=== PATIENT | female | born 1950 | race Caucasian/White ===

== ENCOUNTER 2016-12-04 13:08 | Emergency (ER) | payer MEDICARE, OTHER ==
[~2016-12-04] VITALS: Ht 157.5 cm; Wt 67.8 kg
[~2016-12-04 13:08] MED LIST: CAPT25TA71 PO; [UNRECOGNIZED DRUG - CODE] PO
[2016-12-04 13:10] VITALS: Ht 157.5 cm; Wt 67.8 kg
[2016-12-04] MEDS ORDERED: SOD CHLORIDE 0.9% 1,000 ML IV STA (13:26)
[2016-12-04 13:45] LABS: ADD SCAN DIFF NO
[2016-12-04 13:49] LABS: BASOPHILS % 0.5 % (0.0-2.0); EOSINOPHILS # 0.3 10^3/ul (0.0-0.5); EOSINOPHILS % 2.8 % (0.0-7.0); HEMATOCRIT 38.5 % (37.0-47.0); HEMOGLOBIN 13.2 g/dl (12.0-16.0); LYMPHOCYTES % 34.5 % (15.0-51.0); MEAN CORPUSCULAR HEMOGLOBIN 30.8 pg (29.0-33.0); MEAN CORPUSCULAR HGB CONC 34.3 g/dl (32.0-37.0); MEAN PLATELET VOLUME 8.9 fl (7.4-10.4); MONOCYTE # 0.5 10^3/ul (0.3-0.9); MONOCYTES % 5.4 % (0.0-11.0); NEUTROPHILS % 56.6 % (39.0-77.0); PLATELET COUNT 211 10^3/UL (140-415); RED BLOOD COUNT 4.28 10^6/ul (4.20-5.40); RED CELL DISTRIBUTION WIDTH 12.6 % (11.5-14.5); WHITE BLOOD COUNT 8.8 10^3/ul (4.8-10.8)
[2016-12-04 13:58] LABS: CHLORIDE 107 mmol/L (97-110)
[2016-12-04 13:59] LABS: POTASSIUM 3.6 mmol/L (3.5-5.1); SODIUM 148 mmol/L (135-144)
[2016-12-04 14:01] LABS: ANION GAP 18 (8-16); CARBON DIOXIDE 27 mmol/L (21-31)
[2016-12-04 14:02] LABS: ALANINE AMINOTRANSFERASE 35 IU/L (13-69); ALBUMIN/GLOBULIN RATIO 1.21; ALKALINE PHOSPHATASE 95 IU/L (42-121); ASPARTATE AMINO TRANSFERASE 27 IU/L (15-46); BILIRUBIN,INDIRECT 0.4 mg/dl (0-1.1); BILIRUBIN,TOTAL 0.4 mg/dl (0.2-1.3); BLOOD UREA NITROGEN 18 mg/dl (7-20); CALCIUM 8.9 mg/dl (8.4-10.2); GLUCOSE 92 mg/dl (70-220); TOTAL PROTEIN 7.3 g/dl (6.1-8.1)
[2016-12-04 14:04] LABS: INR 0.97; PROTIME 12.9 Sec (12.2-14.2)
[2016-12-04 14:05] LABS: PARTIAL THROMBOPLASTIN TIME 25.8 Sec (25.0-35.0)
[2016-12-04 14:14] LABS: TROPONIN-I < 0.012 ng/ml (0.00-0.12)
[2016-12-04 14:42] LABS: T3 UPTAKE 32.9 % (23.5-40.5)
--- NOTE | 2016-12-04 14:53 | RADRPT ---
PROCEDURE: XR Chest. CLINICAL INDICATION: Chest pain, abdominal pain TECHNIQUE: AP view of the chest was performed. COMPARISON: None FINDINGS: The cardiomediastinal silhouette is within normal limits. The lungs are clear. No signs of pleural f luid or pneumothorax are seen. The osseous structures and soft tissues are unremarkable. IMPRESSION: No evidence for active cardiopulmonary disease. RPTAT: QQ .Franchesca Gibbs MD, MD Date Time Electronically viewed and signed by .Franchesca Gibbs MD, on 12/04/2016 14:53 .F/
[2016-12-04 18:01] LABS: ADD UMIC YES; URINE BILIRUBIN (Dip) NEGATIVE (NEGATIVE); URINE BLOOD (Dip) NEGATIVE (NEGATIVE); URINE COLOR LT. YELLOW (YELLOW); URINE GLUCOSE (Dip) NEGATIVE (NEGATIVE); URINE KETONES (Dip) 15 (NEGATIVE); URINE LEUKOCYTE ESTERASE (Dip) TRACE (NEGATIVE); URINE NITRITE (Dip) NEGATIVE (NEGATIVE); URINE TOTAL PROTEIN (Dip) NEGATIVE (NEGATIVE); URINE UROBILINOGEN (Dip) 0.2 E.U./dL (0.1-1.0)
[2016-12-04 18:31] LABS: URINE RBCS 0-2 /HPF (0)
[2016-12-04] MEDS ORDERED: CEPH500C PO (18:38)
[2016-12-04] MEDS ORDERED: MECL-77 PO (18:40)
--- NOTE | 2016-12-04 18:48 | ERD ---
ER Documentation Chief Complaint Date/Time DATE: 12/04/16 TIME: 18:42 Chief Complaint dizziness x 1 1/2 mos HPI This 66-year-old female presents with feeling tired and occasionally lightheaded for a month and a half. She denies any headache or specific neurological symptoms. She has no focal weakness. Denies any fevers chills although she occasionally does sweat. She has no chest pain or shortness of breath. ROS All systems reviewed and are negative except as per history of present illness. Medications Home Meds Active Scripts Meclizine Hcl* (Meclizine Hcl*) 25 Mg Tablet, 12.5 MG PO Q8H Y for DIZZINESS, # 20 TAB Prov:TISHA GRANT DO 12/04/16 Cephalexin* (Cephalexin*) 500 Mg Capsule, 500 MG PO Q8, #9 CAP Prov:TISHA GRANT DO 12/04/16 Discontinued Reported Medications Gymnema Avery (GYMNEMA SYLVESTRIS LEAF) 1 Gm Powder, PO BID 10/16/13 Captopril* (Capoten*) 25 Mg Tab, 25 MG PO DAILY 10/16/13 Allergies Allergies: Coded Allergies: No Known Allergy (Unverified , 10/16/13) PMhx/Soc History of Surgery: No Anesthesia Reaction: No Hx Neurological Disorder: No Hx Respiratory Disorders: No Hx Cardiac Disorders: No Hx Psychiatric Problems: No Hx Miscellaneous Medical Probl: No Hx Alcohol Use: No Hx Substance Use: No Hx Tobacco Use: No Smoking Status: Never smoker Physical Exam Vitals Vital Signs Date Time Temp Pulse Resp B/P Pulse Ox O2 Delivery O2 Flow Rate FiO2 12/04/16 13:10 98.1 62 18 120/57 99 Physical Exam Const: [] No distress Head: Atraumatic Eyes: Normal Conjunctiva, EOMI, PERRLA ENT: Normal External Ears, Nose and Mouth. Neck: Full range of motion..~ No meningismus. Resp: Clear to auscultation bilaterally Cardio: Regular rate and rhythm, no murmurs Abd: Soft, non tender, non distended. Normal bowel sounds Skin: No petechiae or rashes Back: No midline or flank tenderness Ext: No cyanosis, or edema Neur: Awake and alert and oriented 3, cranial nerves II through XII intact, no cerebellar deficits, normal gait Psych: Normal Mood and Affect Result Diagram: 12/04/16 1330 12/04/16 1330 Results 24 hrs Laboratory Tests Test 12/04/16 13:30 12/04/16 17:20 Activated Partial Thromboplast Time 25.8Sec Alanine Aminotransferase (ALT/SGPT) 35IU/L Albumin 4.0g/dl Albumin/Globulin Ratio 1.21 Alkaline Phosphatase 95IU/L Anion Gap 18 Aspartate Amino Transf (AST/SGOT) 27IU/L Basophils # 0.010^3/ul Basophils % 0.5% Blood Urea Nitrogen 18mg/dl Calcium Level 8.9mg/dl Carbon Dioxide Level 27mmol/L Chloride Level 107mmol/L Creatinine 0.70mg/dl Direct Bilirubin 0.00mg/dl Eosinophils # 0.310^3/ul Eosinophils % 2.8% Free Thyroxine Index 3.36ug/ml Globulin 3.30g/dl Glucose Level 92mg/dl Hematocrit 38.5% Hemoglobin 13.2g/dl INR International Normalized Ratio 0.97 Indirect Bilirubin 0.4mg/dl Lactic Acid Level 0.8mmol/L Lipase 58U/L Lymphocytes # 3.010^3/ul Lymphocytes % 34.5% Mean Corpuscular Hemoglobin 30.8pg Mean Corpuscular Hemoglobin Concent 34.3g/dl Mean Corpuscular Volume 90.0fl Mean Platelet Volume 8.9fl Monocytes # 0.510^3/ul Monocytes % 5.4% Neutrophils # 5.010^3/ul Neutrophils % 56.6% Nucleated Red Blood Cells # 0.010^3/ul Nucleated Red Blood Cells % 0.0/100WBC Platelet Count 69693^3/UL Potassium Level 3.6mmol/L Prothrombin Time 12.9Sec Prothrombin Time Ratio 1.0 Red Blood Count 4.2810^6/ul Red Cell Distribution Width 12.6% Sodium Level 148mmol/L Thyroxine (T4) 10.2ug/dl Total Bilirubin 0.4mg/dl Total Protein 7.3g/dl Triiodothyronine (T3) Uptake 32.9% Troponin I < 0.012ng/ml White Blood Count 8.810^3/ul Urine Bilirubin NEGATIVE Urine Clarity CLEAR Urine Color LT. YELLOW Urine Glucose NEGATIVE% Urine Hemoglobin NEGATIVE Urine Ketones 15 Urine Leukocyte Esterase TRACE Urine Microscopic RBC 0-2/HPF Urine Microscopic WBC 0-2/HPF Urine Nitrite NEGATIVE Urine Specific [place] 1.020 Urine Total Protein NEGATIVE Urine Urobilinogen 0.2 E.U./dL Urine pH 6.0 Current Medications Medications (Trade) Dose Ordered Sig/Tamra Route PRN Reason Start Time Stop Time Status Last Admin Dose Admin Sodium Chloride (NS) 1,000 ml @ 1,000 mls/hr Q1H STAT IV 12/04/16 13:26 12/04/16 14:25 DC 12/04/16 13:47 Procedures/MDM Patient is visually asymptomatic except for subjective generalized weakness and occasional dizziness as though she feels lightheaded but occasionally as though there is a little spinning for a month and a half. She also had occasional sweats. There are no signs of acute infection. She has a positive leukocyte esterase and trace amounts in her urinalysis. I will discharge with Keflex. She doesn't hydrated normal saline. He is currently asymptomatic and feeling well in the emergency room. She does have mild bradycardia with normal blood pressure. Going to discharge her with a few of 12.5 mg and ever pills as well as 3 days of Keflex. Could have her follow up with her primary care doctor. All of her labs for her. Told if she has any neurological symptoms or chest pain shortness of breath she should really return to the ER. 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 No other arrhythmias Chest x-ray interpretation: No acute process, no witnessed him, no infiltrate, no pneumothorax, no fractures Departure Diagnosis: Primary Impression: Dizziness Additional Impression: Generalized weakness Condition: Stable Patient Instructions: Dizziness, Unk Cause Additional Instructions: Call your primary care doctor TOMORROW for an appointment during the next 2-3 days.See the doctor sooner or return here if your condition worsens before your appointment time. TISHA GRANT DO Dec 04, 2016 18:48
[2016-12-04 18:55] VITALS: BP 120/85; PULSE 61; RESP 16; TEMP 98.8
== END 2016-12-04 18:57 | disposition home or self-care (01) ==
LOC: E/R 13:08
DX: R42 Dizziness and giddiness (principal); R53.1 Weakness; R07.9 Chest pain, unspecified
CPT/HCPCS: 71010; 80053; 81001; 81003; 83605; 83690; 84436; 84479; 84484; 85025; 85610; 85730; 99285; J7030

== ENCOUNTER 2017-07-02 09:36 | Observation (INO) | payer MEDICARE, OTHER ==
[~2017-07-02] VITALS: Ht 157.5 cm; Wt 77.9 kg
[~2017-07-02 09:36] MED LIST changes: -CAPT25TA71 PO; +CEPH500C PO; +MECL-77 PO; -[UNRECOGNIZED DRUG - CODE] PO
--- NOTE | 2017-07-02 10:08 | ERA ---
ER Documentation Chief Complaint Date/Time DATE: 07/02/17 TIME: 10:04 Chief Complaint sob x 6 weeks, cough x 5 days HPI This is a very pleasant 67-year-old female history of diabetes, using a sign language interpreter. The patient describes at least 6 weeks of shortness of breath. She also describes approximately 1 week of left-sided chest pain and pressure that is intermittent worsening today. She denies any mid back pain. Shortness of breath is constant and no different when laying flat or exerting herself. No fevers or chills or cough. ROS All systems reviewed and are negative except as per history of present illness. Medications Home Meds Discontinued Scripts Meclizine Hcl* (Meclizine Hcl*) 25 Mg Tablet, 12.5 MG PO Q8H Y for DIZZINESS, # 20 TAB Prov:TISHA GRANT DO 12/04/16 Cephalexin* (Cephalexin*) 500 Mg Capsule, 500 MG PO Q8, #9 CAP Prov:TISHA GRANT DO 12/04/16 Allergies Allergies: Coded Allergies: No Known Allergy (Unverified , 10/16/13) PMhx/Soc History of Surgery: No Anesthesia Reaction: No Hx Neurological Disorder: No Hx Respiratory Disorders: No Hx Cardiac Disorders: No Hx Psychiatric Problems: No Hx Miscellaneous Medical Probl: No Hx Alcohol Use: No Hx Substance Use: No Hx Tobacco Use: No FmHx Family History: No diabetes Physical Exam Vitals Vital Signs Date Time Temp Pulse Resp B/P Pulse Ox O2 Delivery O2 Flow Rate FiO2 07/02/17 10:38 56 24 117/69 97 Room Air 07/02/17 10:29 Nasal Cannula 2 07/02/17 09:40 97.5 66 18 113/67 99 Physical Exam General: Well developed, well nourished, no acute distress Head: Normocephalic, atraumatic. Eyes: Pupils equally reactive, EOM intact ENT: Moist mucous membranes Neck: Supple, no lymphadenopathy Respiratory: Lungs clear bilaterally, no distress Cardiovascular: RRR, no murmurs, rubs, or gallops Abdominal: Soft, non-tender, non-distended, no peritoneal signs : Deferred MSK: Bilateral lower extremity 1+ pitting edema, no unilateral swelling, 5/5 strength Neurologic: Alert and oriented, moving all extremities, normal speech, no focal weakness, no cerebellar signs Skin: No rash Psych: Normal mood Result Diagram: 07/02/17 1008 07/02/17 1008 Results 24 hrs Laboratory Tests Test 07/02/17 10:08 White Blood Count 6.210^3/ul Red Blood Count 4.5010^6/ul Hemoglobin 13.6g/dl Hematocrit 40.5% Mean Corpuscular Volume 90.0fl Mean Corpuscular Hemoglobin 30.2pg Mean Corpuscular Hemoglobin Concent 33.6g/dl Red Cell Distribution Width 12.4% Platelet Count 62447^3/UL Mean Platelet Volume 9.0fl Neutrophils % 43.9% Lymphocytes % 44.1% Monocytes % 7.6% Eosinophils % 3.7% Basophils % 0.5% Nucleated Red Blood Cells % 0.0/100WBC Neutrophils # 2.710^3/ul Lymphocytes # 2.710^3/ul Monocytes # 0.510^3/ul Eosinophils # 0.210^3/ul Basophils # 0.010^3/ul Nucleated Red Blood Cells # 0.010^3/ul Sodium Level 142mmol/L Potassium Level 4.1mmol/L Chloride Level 107mmol/L Carbon Dioxide Level 26mmol/L Anion Gap 13 Blood Urea Nitrogen 14mg/dl Creatinine 0.69mg/dl Glucose Level 121mg/dl Calcium Level 8.7mg/dl Total Bilirubin 0.4mg/dl Direct Bilirubin 0.00mg/dl Indirect Bilirubin 0.4mg/dl Aspartate Amino Transf (AST/SGOT) 40IU/L Alanine Aminotransferase (ALT/SGPT) 70IU/L Alkaline Phosphatase 108IU/L Troponin I < 0.012ng/ml B-Type Natriuretic Peptide 49PG/ML Total Protein 7.7g/dl Albumin 4.4g/dl Globulin 3.30g/dl Albumin/Globulin Ratio 1.33 Current Medications Medications (Trade) Dose Ordered Sig/Tamra Route PRN Reason Start Time Stop Time Status Last Admin Dose Admin Aspirin (Aspirin) 324 mg ONCE ONCE PO 07/02/17 12:00 07/02/17 12:01 Ondansetron HCl (Zofran Inj) 4 mg ER BRIDGE PRN IV NAUSEA AND/OR VOMITING 07/02/17 12:00 07/03/17 11:59 Acetaminophen (Tylenol Tab) 650 mg ER BRIDGE PRN PO MILD PAIN/FEVER 07/02/17 12:00 10/8/17 11:59 Procedures/MDM EKG, MONITORS, & DIAGNOSTIC IMAGING: Chest x-ray: I reviewed and interpreted a 1 view of the chest Mediastinum: No enlargement Cardiac silhouette: No cardiomegaly Airspace: Clear lung saenz bilaterally without evidence of pneumothorax Bones: No evidence of fracture EKG: I reviewed and interpreted a 12-lead EKG. Rhythm: Normal sinus rhythm Ectopy: None Intervals: No abnormalities ST segments: No elevations or depressions T waves: No contiguous inversions LAB INTERPRETATION: Negative troponin, normal BNP MEDICAL DECISION MAKING: The patient presents to the emergency room with 6 weeks of shortness of breath. Her chest pain has been going on for approximately 1 week. It does not appear the patient has had cardiac workup in the past. This is somewhat concerning for possible CHF or cardiac etiology. The patient does not have unilateral swelling, no pleuritic pain, no significant hypoxia or tachycardia to suggest pulmonary embolism. No signs or symptoms concerning for pneumonia. ER COURSE: The patient's laboratory testing and diagnostic imaging is unrevealing. At this time given the persistence of her symptoms as well as the new onset of chest pain I recommend inpatient hospitalization to rule out ACS, echocardiogram to rule out mild CHF. The patient was given aspirin here in the emergency room. At this time no indication for CTPA given very low clinical concern for pulmonary embolism. If symptoms persist or workup shows evidence of right heart strain then consideration for PE workup would be reasonable on an inpatient basis. I kept the patient and/or family informed of laboratory and diagnostic imaging results throughout the emergency room course. DISPOSITION PLAN: Telemetry admission CONSULTATION: Accepting care team and consultations: I discussed the current laboratory data, diagnostic imaging and emergency care provided. Admitting team: Dr. Bee Admitting team indication: Insurance directed Departure Diagnosis: Primary Impression: Shortness of breath Additional Impression: Chest pain Qualified Code: R07.9 - Chest pain, unspecified type Condition: EMELINA Guzman MD Jul 02, 2017 10:08
[2017-07-02 10:32] LABS: BASOPHILS % 0.5 % (0.0-2.0); EOSINOPHILS # 0.2 10^3/ul (0.0-0.5); EOSINOPHILS % 3.7 % (0.0-7.0); HEMATOCRIT 40.5 % (37.0-47.0); HEMOGLOBIN 13.6 g/dl (12.0-16.0); LYMPHOCYTES # 2.7 10^3/ul (0.8-2.9); LYMPHOCYTES % 44.1 % (15.0-51.0); MEAN CORPUSCULAR HEMOGLOBIN 30.2 pg (29.0-33.0); MEAN CORPUSCULAR HGB CONC 33.6 g/dl (32.0-37.0); MONOCYTE # 0.5 10^3/ul (0.3-0.9); MONOCYTES % 7.6 % (0.0-11.0); NEUTROPHIL # 2.7 10^3/ul (1.6-7.5); NEUTROPHILS % 43.9 % (39.0-77.0); PLATELET COUNT 164 10^3/UL (140-415); RED CELL DISTRIBUTION WIDTH 12.4 % (11.5-14.5); WHITE BLOOD COUNT 6.2 10^3/ul (4.8-10.8)
--- NOTE | 2017-07-02 10:46 | RADRPT ---
PROCEDURE: XR Chest. CLINICAL INDICATION: Chest pain. TECHNIQUE: Single frontal view of the chest was obtained. COMPARISON: Chest x-ray 12/04/2016 01:51 p.m. FINDINGS: The soft tissues are normal. There are degenerative osteophytes in the thoracic spine. The heart, cardiomediastinal silhouette and hilar structures are normal. The pulmonary vasculature is normal. There are vascular calcifications in the aortic arch. There is a suboptimal inspiration. There is co mpressive atelectasis in the bases of the lungs. The costophrenic angles are normal. IMPRESSION: 1. Suboptimal inspiratory effort with compressive atelectasis in the bases of the lungs. 2. Atherosclerosis of the aortic arch. 3. Spondylosis of the thoracic spine. 4. Stable chest as compared to 12/04/2016. RPTAT:AAJJ Physician Bunny Date Time Electronically viewed and signed by Elian Carter Physician on 07/02/2017 10:46 ERIKA/
[2017-07-02 10:49] LABS: ALANINE AMINOTRANSFERASE 70 IU/L (13-69); ALBUMIN 4.4 g/dl (3.3-4.9); ALBUMIN/GLOBULIN RATIO 1.33; ALKALINE PHOSPHATASE 108 IU/L (42-121); ANION GAP 13 (8-16); ASPARTATE AMINO TRANSFERASE 40 IU/L (15-46); BILIRUBIN,INDIRECT 0.4 mg/dl (0-1.1); BILIRUBIN,TOTAL 0.4 mg/dl (0.2-1.3); BLOOD UREA NITROGEN 14 mg/dl (7-20); CALCIUM 8.7 mg/dl (8.4-10.2); CARBON DIOXIDE 26 mmol/L (21-31); CHLORIDE 107 mmol/L (97-110); CREATININE 0.69 mg/dl (0.44-1.00); GLUCOSE 121 mg/dl (70-220); POTASSIUM 4.1 mmol/L (3.5-5.1); SODIUM 142 mmol/L (135-144); TOTAL PROTEIN 7.7 g/dl (6.1-8.1)
[2017-07-02 11:00] LABS: B-TYPE NATRIURETIC PEPTIDE 49 PG/ML (0-125)
[2017-07-02 11:12] LABS: TROPONIN-I < 0.012 ng/ml (0.00-0.12)
[2017-07-02] MEDS ORDERED: ACETAMINOPHEN 325 MG TAB PO PRN ×2 (12:00→13:00)
[2017-07-02] MEDS ORDERED: ONDANSETRON 4 MG INJ IV PRN ×2 (12:00→13:00)
[2017-07-02] MEDS ORDERED: ASPIRIN 81 MG TAB PO ONE (12:00)
[2017-07-02] MEDS ORDERED: HYDROCODONE/APAP (5/325) TAB PO PRN (13:00)
[2017-07-02] MEDS ORDERED: NACL 0.9% 3 ML SYG IV SCH (13:00)
--- NOTE | 2017-07-02 13:02 | HP ---
Date/Time of Note Date/Time of Note DATE: 07/02/17 TIME: 12:56 Assessment/Plan VTE Prophylaxis VTE Prophylaxis Intervention: SCD's Lines/Catheters IV [facility] [place] Assessment/Plan Chief Complaint/Hosp Course 1. Chronic progressive dyspnea with an exertional component. Etiology unclear. Chest x-ray unimpressive. She denied any recent long travels. Low risk for any thromboembolic process. We will obtain a d-dimer. We will evaluate for any cardiac causes. Serial troponins will be obtained. A 2D echocardiogram will be obtained. Cardiology consult will be obtained. An ESR and CRP level will be obtained to evaluate for any underlying inflammatory process. 2. Vertigo. The patient has been taking meclizine at home. Brain CT scan will be obtained. A neurology consult will be obtained. Orthostatic vital signs will be obtained. 3. Type 2 diabetes mellitus. Not on any medications at home. The patient will be started on a carbohydrate controlled diet. A hemoglobin A1c will be obtained. If the patient's blood glucose levels continues to run high, the patient will be started on appropriate treatment. Plan: The patient will be admitted to inpatient telemetry floor. The patient will be started on a carbohydrate controlled diet. The patient will be started on DVT prophylaxis. The patient will remain a full code. Activities will be with assist. The rest of the patient's management will be based on the clinical course, inputs from consultants, and the results of diagnostic studies. Based on the patient's clinical presentation, she most probably requires at least one midnights stay for further management and evaluation of her clinical presentation. The case and management of this patient was fully discussed with Dr. Bee Problems: HPI/ROS Admit Date/Time Admit Date/Time Hx of Present Illness Reason for admission: Dyspnea [exertional] for past 6 weeks, cough. Consultants 1. Amando Ruiz MD, Cardiology. 2. Amanda Recinos MD, Neurology. This is a 67-year-old female with past medical history of type 2 diabetes mellitus currently not on any medications who came to the emergency room with multiple complaints. The patient verbalized that she has been feeling short of breath for the past 6 weeks. The patient verbalized that she becomes short of breath mainly with exertion and has been progressively getting worse. She denied any orthopnea or paroxysmal nocturnal dyspnea. She denied any chest pain per se. However, she was complaining of chest pain with frequent coughing. She was also complaining of a productive cough for the past 5 days. She denied any fevers. She was complaining of headache and neck pain. She denied any recent travels or sick contacts. The patient denied any nausea , vomiting, abdominal pain, diarrhea, constipation, dysuria, urinary urgency or frequency. The patient also complaining of significant dizziness and that the patient actually visited the ER at [facility] in November 2016 when she was discharged home on meclizine. The patient verbalized 1 episode of near syncope the previous day. She denied any loss of consciousness. She denied any seizures. In the emergency room, the patient's chest x-ray showed suboptimal inspiratory effort with compressive atelectasis in the lung bases. The patient's troponins were negative. The patient had no leukocytosis. The patient's 12-lead EKG showed sinus bradycardia. She was treated with a single dose of aspirin orally in the ER. ROS Constitutional: fatigue Eyes: no complaints ENT: no complaints Respiratory: cough, shortness of breath, sputum Cardiovascular: chest pain, lightheadedness Gastrointestinal: no complaints Genitourinary: no complaints Musculoskeletal: neck pain Skin: no complaints Neurologic: dizziness, headache Endocrine: no complaints Lymphatic: no complaints Psychological: no complaints Immunologic: no complaints PMH/Family/Social Past Medical History Medical History: diabetes Past Surgical History Past Surgical Hx: other (, tubal ligation) Family History Significant Family History: diabetes Social History Lives at home with her family. Alcohol Use: none Smoking Status: Former smoker Drug Use: none Exam/Review of Systems Vital Signs Vitals Vital Signs Date Time Temp Pulse Resp B/P Pulse Ox O2 Delivery O2 Flow Rate FiO2 07/02/17 12:33 52 17 114/72 100 Room Air 07/02/17 10:29 2 07/02/17 09:40 97.5 Exam Exam General: Adequately build 67 year-old female lying in bed in no apparent distress. HEENT: Normocephalic, atraumatic. Eyes: Anicteric sclerae, conjunctivae clear. ENT: Nasal septum midline, oral mucosa moist. Neck supple, no JVD noticed. Respiratory: Bilaterally clear breath sounds. No use of accessory muscles of respiration. No adventitious breath sounds. Cardiovascular: S1, S2 heard. No murmurs or gallops. Abdomen: Soft, nontender, and nondistended. Bowel sounds positive in all 4 quadrants. Genitourinary: Deferred. Extremities: No cyanosis, no clubbing. Trace B/L LE edema. Peripheral pulses palpable. Neurologic: Cranial nerves II through XII grossly intact. The patient is awake, alert, and oriented. Skin: Normal skin turgor. No skin rashes. Labs Result Diagram: 07/02/17 1008 07/02/17 1008 Procedures Procedures CXR IMPRESSION: 1. Suboptimal inspiratory effort with compressive atelectasis in the bases of the lungs. 2. Atherosclerosis of the aortic arch. 3. Spondylosis of the thoracic spine. 4. Stable chest as compared to 12/04/2016. 12-Lead EKG Sinus bradycardia. GINA SOMMER NP Jul 02, 2017 13:02
[2017-07-02 14:00] VITALS: PULSE 50; Ht 157.5 cm; Wt 77.9 kg
--- NOTE | 2017-07-02 14:22 | RADRPT ---
PROCEDURE: CT Brain without contrast. CLINICAL INDICATION: Syncope, near-syncope TECHNIQUE: Routine CT scan of the brain was performed on a high resolution multi detector scanner without intravenous contrast. One or more of the following dose reduction techniques were used: Auto mated exposure control; Adjustment of the mA and/or kV according to patient size; Use of iterative r econstruction technique. CTDI = 45 mGy. DLP = 630 mGy-cm. COMPARISON: No prior relevant examinations are available for comparison. FINDINGS: Hemorrhage: No evidence of intracranial hemorrhage. Acute ischemic changes: No evidence of acute ischemic changes. Mass effect: None. Parenchymal volume: Within normal limits for age. Ventricular system: Concordant with parenchymal volume. Chronic changes: Parenchymal attenuation is within normal limits. Atherosclerotic calcifications of the cavernous portions of both internal carotid arteries are present. Extracranial soft tissues: Unremarkable. Calvarium: No fractures. Paranasal sinuses: Visualized paranasal sinuses are clear. Mastoid air cells: Visualized mastoid air cells are clear. IMPRESSION: No acute intracranial abnormalities. Mild chronic-appearing microvascular ischemic changes of the supratentorial white matter. RPTAT: AADD .Donavon Chun MD, Date Time Electronically viewed and signed by .Donavon Chun MD, MD on 07/02/2017 14:22 .B/
--- NOTE | 2017-07-02 15:48 | CONS ---
Date/Time of Note Date/Time of Note DATE: 07/02/17 TIME: 15:42 Assessment/Plan Assessment/Plan Chief Complaint/Hosp Course 67 yo female with hx of Type II DM p/w multiple diffuse complaints dyspnea on exertion, cough, dizziness. Non focal neurologic exam. May obtain MRI Brain w/o contrast to r/o possible central causes of her sx carotid duplex is ordered to eval for carotid stenosis as possible cause of pre- syncope Check Orthostatic vitals may check FLP and HBA1c to optimize secondary risk factors for stroke continue medical work up as planned will follow Problems: Consultation Date/Type/Reason Admit Date/Time 07/02/17 Date of Consultation: Jul 02, 2017 Type of Consultation: Neurology Reason for Consultation evaluation for diffuse weakness and dizziness Referring Provider: GINA SOMMER NP Hx of Present Illness 67 year old female with history of Type II DM not currently on meds p/w multiple diffuse complaints. She reports difficulty breathing, cough, exertional dyspnea for several weeks along with sensation of loss of balance and dizziness, denies room spinning. She denies any headaches no speech issues, no facial droop or weakness in extremities, no falls, no urinary or bowel incontinence. She was previously evaluated in ER and given meclizine for c/o of dizziness. Eyes: no complaints ENT: no complaints Respiratory: cough, shortness of breath, sputum Cardiovascular: chest pain, lightheadedness Gastrointestinal: no complaints Genitourinary: no complaints Musculoskeletal: neck pain Skin: no complaints Neurologic: dizziness, headache Lymphatic: no complaints Psychological: no complaints Immunologic: no complaints Past Medical History Medical History: diabetes Past Surgical History Past Surgical Hx: other (, tubal ligation) Social History Alcohol Use: none Smoking Status: Former smoker Drug Use: none Exam/Review of Systems Vital Signs Vitals Vital Signs Date Time Temp Pulse Resp B/P Pulse Ox O2 Delivery O2 Flow Rate FiO2 07/02/17 14:00 50 07/02/17 12:33 17 114/72 100 Room Air 07/02/17 10:29 2 07/02/17 09:40 97.5 Exam Neurological: 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, DTR's symmetric, nl mental status, nl speech, nl strength Results Result Diagram: 07/02/17 1008 07/02/17 1008 Results 24 hrs Laboratory Tests Test 07/02/17 10:08 White Blood Count 6.2 # Red Blood Count 4.50 Hemoglobin 13.6 Hematocrit 40.5 Mean Corpuscular Volume 90.0 Mean Corpuscular Hemoglobin 30.2 Mean Corpuscular Hemoglobin Concent 33.6 Red Cell Distribution Width 12.4 Platelet Count 164 # Mean Platelet Volume 9.0 Neutrophils % 43.9 Lymphocytes % 44.1 Monocytes % 7.6 Eosinophils % 3.7 Basophils % 0.5 Nucleated Red Blood Cells % 0.0 Neutrophils # 2.7 Lymphocytes # 2.7 Monocytes # 0.5 Eosinophils # 0.2 Basophils # 0.0 Nucleated Red Blood Cells # 0.0 Sodium Level 142 Potassium Level 4.1 Chloride Level 107 Carbon Dioxide Level 26 Anion Gap 13 Blood Urea Nitrogen 14 Creatinine 0.69 Glucose Level 121 Calcium Level 8.7 Total Bilirubin 0.4 Direct Bilirubin 0.00 Indirect Bilirubin 0.4 Aspartate Amino Transf (AST/SGOT) 40 Alanine Aminotransferase (ALT/SGPT) 70 H Alkaline Phosphatase 108 Troponin I < 0.012 B-Type Natriuretic Peptide 49 Total Protein 7.7 Albumin 4.4 Globulin 3.30 H Albumin/Globulin Ratio 1.33 Medications Medications Current Medications Ondansetron HCl (Zofran Inj) 4 mg Q6H PRN IV NAUSEA AND/OR VOMITING; Start 07/02/17 at 13:00 Acetaminophen (Tylenol Tab) 650 mg Q6H PRN PO PAIN LEVEL 1-3 OR FEVER; Start 07/02/17 at 13:00 Acetaminophen/ Hydrocodone Bitart ([place] (5/325)) 1 tab Q6H PRN PO PAIN LEVEL 4 -6; Start 07/02/17 at 13:00 KAJAL FLETCHER MD Jul 02, 2017 15:48
[2017-07-02 15:50] VITALS: BP 119/64; RESP 18
[2017-07-02 16:08] VITALS: PULSE 52
[2017-07-02 16:08] LABS: INR 0.96; PROTIME 12.5 Sec (12.2-14.2)
[2017-07-02 16:12] LABS: CREATINE KINASE 158 IU/L (23-200)
[2017-07-02 16:14] LABS: C-REACTIVE PROTEIN 1.2 mg/dl (0.0-0.9)
[2017-07-02 16:16] LABS: PARTIAL THROMBOPLASTIN TIME 26.1 Sec (25.0-35.0)
[2017-07-02 16:24] LABS: CK-MB 1.93 ng/ml (0.0-2.4); TROPONIN-I < 0.012 ng/ml (0.00-0.12)
[2017-07-02 17:13] LABS: THYROID STIMULATING HORMONE 1.76 MIU/L (0.465-4.680)
[2017-07-02 17:49] LABS: ADD UMIC YES; UR ASCORBIC ACID 40 mg/dL (NEGATIVE); UR BACTERIA MANY /HPF (NONE SEEN); UR BILIRUBIN (Dip) NEGATIVE (NEGATIVE); UR BLOOD (Dip) NEGATIVE (NEGATIVE); UR CLARITY SLIGHTLY CLOUDY (CLEAR); UR COLOR YELLOW (YELLOW); UR GLUCOSE (Dip) NEGATIVE (NEGATIVE); UR KETONES (Dip) NEGATIVE (NEGATIVE); UR LEUKOCYTE ESTERASE (Dip) TRACE Leu/ul (NEGATIVE); UR MUCUS FEW /HPF (NONE SEEN); UR NITRITE (Dip) POSITIVE (NEGATIVE); UR RBC 1 /HPF (0-5); UR SPECIFIC GRAVITY (Dip) 1.024 (1.003-1.030); UR SQUAMOUS EPITHELIAL CELL FEW /HPF (FEW); UR TOTAL PROTEIN (Dip) NEGATIVE (NEGATIVE); UR UROBILINOGEN (Dip) NEGATIVE (NEGATIVE)
[2017-07-02 18:00] LABS: BARBITURATES Negative (NEGATIVE); BENZODIAZEPINES Negative (NEGATIVE); CANNABINOIDS Negative (NEGATIVE); COCAINE Negative (NEGATIVE); OPIATES Negative (NEGATIVE)
[2017-07-02 18:09] VITALS: BP_SYST 110; BP_SYST 111; BP_SYST 117; BP_DIAS 56; BP_DIAS 61; BP_DIAS 62; PULSE 57; RESP 18
[2017-07-02 20:00] VITALS: BP 116/59; RESP 15
[2017-07-02 20:04] VITALS: PULSE 63
--- NOTE | 2017-07-02 21:23 | RADRPT ---
PROCEDURE: US carotid arteries. CLINICAL INDICATION: Dizziness. Syncope. TECHNIQUE: Multiple sonographic images of the carotid arteries and vertebral arteries were obtaine d utilizing sandy scale, duplex, and color-flow imaging. The images were reviewed on a PACS workstati on. COMPARISON: No prior studies are available for comparison. FINDINGS: Evaluation of the right carotid bifurcation region reveals no atherosclerotic disease. Evaluation of the left carotid bifurcation region reveals no atherosclerotic disease. There is antegrade flow within the vertebral arteries bilaterally. RIGHT CAROTID MEASUREMENTS: Common Carotid Dipyaz89 (cm/sec) Internal Carotid Artery 71 (cm/sec) External Carotid Artery 81 (cm/sec) Vertebral Artery 54 (cm/sec) Internal Carotid/Common Carotid1.1 LEFT CAROTID MEASUREMENTS: Common Carotid Nnklal73 (cm/sec) Internal Carotid Artery 60 (cm/sec) External Carotid Artery 98 (cm/sec) Vertebral Artery 66 (cm/sec) Internal Carotid/Common Carotid0.9 Validated velocity measurements with angiographic measurements. Velocity criteria are extrapolated f rom diameter data as defined by the Society of Radiologists in Ultrasound Consensus Conference. Radi ology 2003; 229;340-346. This study does indirectly reference the measurement of the distal ICA velvet meter as the denominator for stenosis measurement. IMPRESSION: 1. Normal carotid arteries. 2. Normal antegrade flow in the vertebral arteries bilaterally. RPTAT: QQ SRU Consensus Conference Criteria for the Diagnosis of Carotid Artery Stenosis* Degree of Stenosis, % ICA PSV, cm/sec Plaque Estimate, % ICA/CCA PSV Ratio Normal <125 None <2.0 <50 <125 <50 <2.0 50 69 125-230 >50 2.0-4.0 >70 but less than near occlusion >230 >50 <4.0 Near occlusion High, low, or undetectable Visible Variable Total occlusion Undetectable Visible, no detectable lumen Not applicable *Cartoid artery stenosis: sandy-scale and Doppler US diagnosis. Society of Radiologists in Ultrasound Consensus Conference. Radiology 2003; 229: 340-346 .Thuan Acosta MD, Date Time Electronically viewed and signed by .Thuan Acosta MD, on 07/02/2017 21:23 .R/
[2017-07-02 23:18] LABS: CREATINE KINASE 139 IU/L (23-200)
[2017-07-03] VITALS (13 sets, daily range): BP systolic 107–124; BP diastolic 58–64; PULSE 54–63; RESP 12–20
[2017-07-03 00:20] LABS: TROPONIN-I < 0.012 ng/ml (0.00-0.12)
[2017-07-03] MEDS ORDERED: INFLUENZA VIRUS VACCINE 0.5 ML (DISPENSING) IM* ONE (09:00)
[2017-07-03 09:25] LABS: BASOPHILS % 0.4 % (0.0-2.0); EOSINOPHILS # 0.4 10^3/ul (0.0-0.5); EOSINOPHILS % 5.5 % (0.0-7.0); HEMATOCRIT 40.6 % (37.0-47.0); HEMOGLOBIN 13.6 g/dl (12.0-16.0); LYMPHOCYTES # 2.5 10^3/ul (0.8-2.9); LYMPHOCYTES % 37.7 % (15.0-51.0); MEAN CORPUSCULAR HEMOGLOBIN 30.3 pg (29.0-33.0); MEAN CORPUSCULAR HGB CONC 33.5 g/dl (32.0-37.0); MEAN CORPUSCULAR VOLUME 90.4 fl (82.0-101.0); MEAN PLATELET VOLUME 9.7 fl (7.4-10.4); MONOCYTE # 0.4 10^3/ul (0.3-0.9); MONOCYTES % 5.8 % (0.0-11.0); NEUTROPHIL # 3.4 10^3/ul (1.6-7.5); NEUTROPHILS % 50.5 % (39.0-77.0); PLATELET COUNT 169 10^3/UL (140-415); RED BLOOD COUNT 4.49 10^6/ul (4.20-5.40); RED CELL DISTRIBUTION WIDTH 12.5 % (11.5-14.5); WHITE BLOOD COUNT 6.7 10^3/ul (4.8-10.8)
[2017-07-03 09:43] LABS: CHOL/HDL RATIO 5.3 RATIO; MAGNESIUM 2.1 mg/dl (1.7-2.5); PHOSPHORUS 3.1 mg/dl (2.5-4.9)
[2017-07-03 09:49] LABS: ALBUMIN 4.1 g/dl (3.3-4.9); ALBUMIN/GLOBULIN RATIO 1.24; BILIRUBIN,INDIRECT 0.5 mg/dl (0-1.1); BILIRUBIN,TOTAL 0.5 mg/dl (0.2-1.3); CALCIUM 8.4 mg/dl (8.4-10.2); CREATININE 0.67 mg/dl (0.44-1.00); POTASSIUM 3.9 mmol/L (3.5-5.1); TOTAL PROTEIN 7.4 g/dl (6.1-8.1)
[2017-07-03] MEDS ORDERED: GLUCOSE GEL 15 GRAM TUBE BUCCAL PRN (11:30)
[2017-07-03] MEDS ORDERED: GLUCOSE GEL 15 GRAM TUBE PO PRN ×2 (11:30)
[2017-07-03] MEDS ORDERED: GLUCAGON 1 MG INJ IM PRN (11:30)
[2017-07-03] MEDS ORDERED: DEXTROSE 50% 50 ML SYRINGE IV PRN ×2 (11:30)
--- NOTE | 2017-07-03 11:33 | PN ---
Date/Time of Note Date/Time of Note DATE: 07/03/17 TIME: 11:26 Assessment/Plan VTE Prophylaxis VTE Prophylaxis Intervention: SCD's Lines/Catheters IV [facility]ter Type [facility]from [facility] [place] Urinary Cath still in place: No Assessment/Plan Chief Complaint/Hosp Course 1. Chronic progressive dyspnea with an exertional component. Etiology unclear. Chest x-ray unimpressive. She denied any recent long travels. Low risk for any thromboembolic process. D-dimer negative. We will evaluate for any cardiac causes. Serial troponins so far. Pending 2D echocardiogram. Pending cardiology evaluation. Brain MRI pending to evaluate for any central causes. Neurology following. ESR not elevated and CRP is not significantly elevated. PT evaluation. 2. Vertigo. The patient has been taking meclizine at home. Brain CT scan negative. Status post neurology evaluation. Orthostatic vital signs will be obtained. 3. Type 2 diabetes mellitus. Hemoglobin A1c 6.5. We will start the patient on sliding scale insulin. 4. Vitamin D deficiency. Start vitamin D supplements. 5. Fluids, electrolytes, and nutrition. Carbohydrate controlled diet. 6. DVT prophylaxis. Bilateral SCDs. 7. Plan. Continue current management. Await cardiology evaluation. Await further studies. Case discussed with Dr. Bee. Problems: Subjective 24 Hr Interval Summary Free Text/Dictation Continues to complain of generalized weakness. Cough improved. Exam/Review of Systems Vital Signs Vitals Vital Signs Date Time Temp Pulse Resp B/P Pulse Ox O2 Delivery O2 Flow Rate FiO2 07/03/17 08:12 97.7 54 19 124/63 96 07/02/17 12:33 Room Air 07/02/17 10:29 2 Intake and Output 07/02/17 07/02/17 07/03/17 15:00 23:00 07:00 Intake Total 300 ml 500 ml Balance 300 ml 500 ml Exam General: Adequately build 67 year-old female lying in bed in no apparent distress. HEENT: Normocephalic, atraumatic. Eyes: Anicteric sclerae, conjunctivae clear. ENT: Nasal septum midline, oral mucosa moist. Neck supple, no JVD noticed. Respiratory: Bilaterally clear breath sounds. No use of accessory muscles of respiration. No adventitious breath sounds. Cardiovascular: S1, S2 heard. No murmurs or gallops. Abdomen: Soft, nontender, and nondistended. Bowel sounds positive in all 4 quadrants. Genitourinary: Deferred. Extremities: No cyanosis, no clubbing. Trace B/L LE edema. Peripheral pulses palpable. Neurologic: Cranial nerves II through XII grossly intact. The patient is awake, alert, and oriented. Skin: Normal skin turgor. No skin rashes. Results Result Diagram: 07/03/17 0804 07/03/17 0804 Results 24 hrs Laboratory Tests Test 07/02/17 14:50 07/02/17 15:03 07/02/17 15:04 07/02/17 17:00 Hemoglobin A1c 6.6 H Erythrocyte Sedimentation Rate 14 C-Reactive Protein 1.2 H Thyroid Stimulating Hormone (TSH) 1.760 Prothrombin Time 12.5 Prothrombin Time Ratio 1.0 INR International Normalized Ratio 0.96 Activated Partial Thromboplast Time 26.1 D-Dimer 410.00 D-Dimer Comment Creatine Kinase 158 Creatine Kinase Index 1.2 Creatinine Kinase MB (Mass) 1.93 Troponin I < 0.012 Vitamin D 1,25-Dihydroxy 25.2 L Free Thyroxine 1.28 Urine Color YELLOW Urine Clarity SLIGHTLY CLOUDY A Urine pH 5.0 Urine Specific [place] 1.024 Urine Ketones NEGATIVE Urine Nitrite POSITIVE A Urine Bilirubin NEGATIVE Urine Urobilinogen NEGATIVE Urine Leukocyte Esterase TRACE A Urine Microscopic RBC 1 Urine Microscopic WBC 28 H Urine Squamous Epithelial Cells FEW Urine Bacteria MANY A Urine Mucus FEW A Urine Hemoglobin NEGATIVE Urine Glucose NEGATIVE Urine Total Protein NEGATIVE Urine Opiates Screen Negative Urine Barbiturates Negative Urine Amphetamines Screen Negative Urine Benzodiazepines Screen Negative Urine Cocaine Screen Negative Urine Cannabinoids Negative Test 07/02/17 22:18 07/03/17 08:04 Creatine Kinase 139 Creatine Kinase Index 1.4 Creatinine Kinase MB (Mass) 2.00 Troponin I < 0.012 White Blood Count 6.7 Red Blood Count 4.49 Hemoglobin 13.6 Hematocrit 40.6 Mean Corpuscular Volume 90.4 Mean Corpuscular Hemoglobin 30.3 Mean Corpuscular Hemoglobin Concent 33.5 Red Cell Distribution Width 12.5 Platelet Count 169 Mean Platelet Volume 9.7 Neutrophils % 50.5 Lymphocytes % 37.7 Monocytes % 5.8 Eosinophils % 5.5 Basophils % 0.4 Nucleated Red Blood Cells % 0.0 Neutrophils # 3.4 Lymphocytes # 2.5 Monocytes # 0.4 Eosinophils # 0.4 Basophils # 0.0 Nucleated Red Blood Cells # 0.0 Sodium Level 140 Potassium Level 3.9 Chloride Level 106 Carbon Dioxide Level 26 Anion Gap 12 Blood Urea Nitrogen 16 Creatinine 0.67 Glucose Level 132 Calcium Level 8.4 Phosphorus Level 3.1 Magnesium Level 2.1 Total Bilirubin 0.5 Direct Bilirubin 0.00 Indirect Bilirubin 0.5 Aspartate Amino Transf (AST/SGOT) 37 Alanine Aminotransferase (ALT/SGPT) 62 Alkaline Phosphatase 103 Total Protein 7.4 Albumin 4.1 Globulin 3.30 H Albumin/Globulin Ratio 1.24 Triglycerides Level 159 H Cholesterol Level 156 LDL Cholesterol, Calculated 95 HDL Cholesterol 29 L Cholesterol/HDL Ratio 5.3 Medications Medications Current Medications Ondansetron HCl (Zofran Inj) 4 mg Q6H PRN IV NAUSEA AND/OR VOMITING; Start 07/02/17 at 13:00 Acetaminophen (Tylenol Tab) 650 mg Q6H PRN PO PAIN LEVEL 1-3 OR FEVER; Start 07/02/17 at 13:00 Acetaminophen/ Hydrocodone Bitart ([place] (5/325)) 1 tab Q6H PRN PO PAIN LEVEL 4 -6; Start 07/02/17 at 13:00 GINA SOMMER NP Jul 03, 2017 11:33
[2017-07-03] MEDS: INSULIN ASPART [NOVOLOG] 3 ML PEN SC SCH ×5 (12:39→20:43)
[2017-07-03] MEDS: CHOLECALCIFEROL 1,000 UNIT TAB PO SCH (13:32)
--- NOTE | 2017-07-03 14:09 | CONS ---
Date/Time of Note Date/Time of Note DATE: 07/03/17 TIME: 14:04 Assessment/Plan Assessment/Plan Chief Complaint/Hosp Course Exertional dyspnea: No e/o heart failure or valvular disease by exam. Ischemia is a possibility Chest pain: Atypical and nonexertional but has CAD risk factors including DM Dizziness: chronic and thought to be vertigo DM -start ASA/statin -echo -Lexiscan in am -NPO after midnight Problems: Consultation Date/Type/Reason Admit Date/Time 07/02/17 Date of Consultation: Jul 03, 2017 Type of Consultation: Cardiology Reason for Consultation Chest pain, dyspnea. Referring Provider: GINA SOMMER NP Hx of Present Illness 67 yo F with a h/o DM, HTN, who presented with SOB, dizziness, chest pain. The pt has had 6 weeks of exertional dyspnea mostly but she also had some mild chest discomfort on admission. She has been having dizziness for a while and always feels tired. No orthopnea, PND, edema. No prior cardiac issues. per HPI Eyes: no complaints ENT: no complaints Respiratory: cough, shortness of breath, sputum Cardiovascular: chest pain, lightheadedness Gastrointestinal: no complaints Genitourinary: no complaints Musculoskeletal: neck pain Skin: no complaints Neurologic: dizziness, headache Lymphatic: no complaints Psychological: no complaints Immunologic: no complaints Past Medical History see HPI Medical History: diabetes Past Surgical History Past Surgical Hx: other (, tubal ligation) Social History Alcohol Use: none Smoking Status: Former smoker Drug Use: none Exam/Review of Systems Vital Signs Vitals Vital Signs Date Time Temp Pulse Resp B/P Pulse Ox O2 Delivery O2 Flow Rate FiO2 07/03/17 12:14 98.1 58 19 121/61 96 07/02/17 12:33 Room Air 07/02/17 10:29 2 Intake and Output 07/02/17 07/02/17 07/03/17 15:00 23:00 07:00 Intake Total 300 ml 500 ml Balance 300 ml 500 ml Exam Constitutional: alert, oriented Psych: nl mood/affect, no complaints Head: atraumatic, normocephalic Neck: supple, No jvd Respiratory: clear to auscultation, No crackles/rales Cardiovascular: edema (trace), regular rate and rhythm, No systolic murmur Gastrointestinal: non-tender, soft Musculoskeletal: nl extremities to inspection Neurological: nl mental status, nl speech Results EKG: sinus, no ST changes Result Diagram: 07/03/17 0804 07/03/17 0804 Results 24 hrs Laboratory Tests Test 07/02/17 14:50 07/02/17 15:03 07/02/17 15:04 07/02/17 17:00 Hemoglobin A1c 6.6 H Erythrocyte Sedimentation Rate 14 C-Reactive Protein 1.2 H Thyroid Stimulating Hormone (TSH) 1.760 Prothrombin Time 12.5 Prothrombin Time Ratio 1.0 INR International Normalized Ratio 0.96 Activated Partial Thromboplast Time 26.1 D-Dimer 410.00 D-Dimer Comment Creatine Kinase 158 Creatine Kinase Index 1.2 Creatinine Kinase MB (Mass) 1.93 Troponin I < 0.012 Vitamin D 1,25-Dihydroxy 25.2 L Free Thyroxine 1.28 Urine Color YELLOW Urine Clarity SLIGHTLY CLOUDY A Urine pH 5.0 Urine Specific [place] 1.024 Urine Ketones NEGATIVE Urine Nitrite POSITIVE A Urine Bilirubin NEGATIVE Urine Urobilinogen NEGATIVE Urine Leukocyte Esterase TRACE A Urine Microscopic RBC 1 Urine Microscopic WBC 28 H Urine Squamous Epithelial Cells FEW Urine Bacteria MANY A Urine Mucus FEW A Urine Hemoglobin NEGATIVE Urine Glucose NEGATIVE Urine Total Protein NEGATIVE Urine Opiates Screen Negative Urine Barbiturates Negative Urine Amphetamines Screen Negative Urine Benzodiazepines Screen Negative Urine Cocaine Screen Negative Urine Cannabinoids Negative Test 07/02/17 22:18 07/03/17 08:04 07/03/17 12:36 Creatine Kinase 139 Creatine Kinase Index 1.4 Creatinine Kinase MB (Mass) 2.00 Troponin I < 0.012 White Blood Count 6.7 Red Blood Count 4.49 Hemoglobin 13.6 Hematocrit 40.6 Mean Corpuscular Volume 90.4 Mean Corpuscular Hemoglobin 30.3 Mean Corpuscular Hemoglobin Concent 33.5 Red Cell Distribution Width 12.5 Platelet Count 169 Mean Platelet Volume 9.7 Neutrophils % 50.5 Lymphocytes % 37.7 Monocytes % 5.8 Eosinophils % 5.5 Basophils % 0.4 Nucleated Red Blood Cells % 0.0 Neutrophils # 3.4 Lymphocytes # 2.5 Monocytes # 0.4 Eosinophils # 0.4 Basophils # 0.0 Nucleated Red Blood Cells # 0.0 Sodium Level 140 Potassium Level 3.9 Chloride Level 106 Carbon Dioxide Level 26 Anion Gap 12 Blood Urea Nitrogen 16 Creatinine 0.67 Glucose Level 132 Calcium Level 8.4 Phosphorus Level 3.1 Magnesium Level 2.1 Total Bilirubin 0.5 Direct Bilirubin 0.00 Indirect Bilirubin 0.5 Aspartate Amino Transf (AST/SGOT) 37 Alanine Aminotransferase (ALT/SGPT) 62 Alkaline Phosphatase 103 Total Protein 7.4 Albumin 4.1 Globulin 3.30 H Albumin/Globulin Ratio 1.24 Triglycerides Level 159 H Cholesterol Level 156 LDL Cholesterol, Calculated 95 HDL Cholesterol 29 L Cholesterol/HDL Ratio 5.3 Bedside Glucose 167 Medications Medications Current Medications Ondansetron HCl (Zofran Inj) 4 mg Q6H PRN IV NAUSEA AND/OR VOMITING; Start 07/02/17 at 13:00 Acetaminophen (Tylenol Tab) 650 mg Q6H PRN PO PAIN LEVEL 1-3 OR FEVER; Start 07/02/17 at 13:00 Acetaminophen/ Hydrocodone Bitart ([place] (5/325)) 1 tab Q6H PRN PO PAIN LEVEL 4 -6; Start 07/02/17 at 13:00 Cholecalciferol (Vitamin D) 1,000 unit DAILY PO Last administered on 07/03/17t 13:32; Admin Dose 1,000 UNIT; Start 07/03/17 at 11:30 Diagnostic Test (Pha) (Accu-Chek) 1 ea 02 XX ; Start 07/04/17 at 02:00 Diagnostic Test (Pha) (Accu-Chek) 1 ea 02 XX ; Start 07/04/17 at 02:00 Miscellaneous Information 1 ea NOTE XX ; Start 07/03/17 at 11:30 Glucose (Glutose) 15 gm Q15M PRN PO DECREASED GLUCOSE; Start 07/03/17 at 11:30 Glucose (Glutose) 22.5 gm Q15M PRN PO DECREASED GLUCOSE; Start 07/03/17 at 11: 30 Dextrose (D50w Syringe) 25 ml Q15M PRN IV DECREASED GLUCOSE; Start 07/03/17 at 11:30 Dextrose (D50w Syringe) 50 ml Q15M PRN IV DECREASED GLUCOSE; Start 07/03/17 at 11:30 Glucagon (Glucagen) 1 mg Q15M PRN IM DECREASED GLUCOSE; Start 07/03/17 at 11:30 Glucose (Glutose) 15 gm Q15M PRN BUCCAL DECREASED GLUCOSE; Start 07/03/17 at 11 :30 ZOILA PANIAGUA Jul 03, 2017 14:09
[2017-07-03] MEDS ORDERED: CEFTRIAXONE 1 GM/50 ML (PMX) 50 ML IVPB SCH (16:00)
[2017-07-03] MEDS: ASPIRIN 81 MG TAB PO SCH (17:20)
--- NOTE | 2017-07-03 18:09 | CONS ---
Date/Time of Note Date/Time of Note DATE: 07/03/17 TIME: 18:08 Consult Date/Type/Reason Admit Date/Time Jul 02, 2017 at 11:42 Initial Consult Date 07/03/17 Type of Consultation: Neurology Reason for Consultation vertigo, chest pain Ordering Provider: GNIA SOMMER NP Subjective denies vertigo no chest pain no complaints at this time Objective Vital Signs Date Time Temp Pulse Resp B/P Pulse Ox O2 Delivery O2 Flow Rate FiO2 07/03/17 16:11 98.1 57 19 117/58 95 07/03/17 16:03 Room Air 07/02/17 10:29 2 Intake and Output 07/02/17 07/02/17 07/03/17 15:00 23:00 07:00 Intake Total 300 ml 500 ml Balance 300 ml 500 ml Exam non-focal normal neurologic exam Results/Medications Result Diagram: 07/03/1704 07/03/1704 Results 24 hrs Laboratory Tests Test 07/02/17 22:18 07/03/17 08:04 07/03/17 12:36 07/03/17 17:19 Creatine Kinase 139 Creatine Kinase Index 1.4 Creatinine Kinase MB (Mass) 2.00 Troponin I < 0.012 White Blood Count 6.7 Red Blood Count 4.49 Hemoglobin 13.6 Hematocrit 40.6 Mean Corpuscular Volume 90.4 Mean Corpuscular Hemoglobin 30.3 Mean Corpuscular Hemoglobin Concent 33.5 Red Cell Distribution Width 12.5 Platelet Count 169 Mean Platelet Volume 9.7 Neutrophils % 50.5 Lymphocytes % 37.7 Monocytes % 5.8 Eosinophils % 5.5 Basophils % 0.4 Nucleated Red Blood Cells % 0.0 Neutrophils # 3.4 Lymphocytes # 2.5 Monocytes # 0.4 Eosinophils # 0.4 Basophils # 0.0 Nucleated Red Blood Cells # 0.0 Sodium Level 140 Potassium Level 3.9 Chloride Level 106 Carbon Dioxide Level 26 Anion Gap 12 Blood Urea Nitrogen 16 Creatinine 0.67 Glucose Level 132 Calcium Level 8.4 Phosphorus Level 3.1 Magnesium Level 2.1 Total Bilirubin 0.5 Direct Bilirubin 0.00 Indirect Bilirubin 0.5 Aspartate Amino Transf (AST/SGOT) 37 Alanine Aminotransferase (ALT/SGPT) 62 Alkaline Phosphatase 103 Total Protein 7.4 Albumin 4.1 Globulin 3.30 H Albumin/Globulin Ratio 1.24 Triglycerides Level 159 H Cholesterol Level 156 LDL Cholesterol, Calculated 95 HDL Cholesterol 29 L Cholesterol/HDL Ratio 5.3 Bedside Glucose 167 94 Medications Current Medications Ondansetron HCl (Zofran Inj) 4 mg Q6H PRN IV NAUSEA AND/OR VOMITING; Start 07/02/17 at 13:00 Acetaminophen (Tylenol Tab) 650 mg Q6H PRN PO PAIN LEVEL 1-3 OR FEVER; Start 07/02/17 at 13:00 Acetaminophen/ Hydrocodone Bitart ([place] (5/325)) 1 tab Q6H PRN PO PAIN LEVEL 4 -6; Start 07/02/17 at 13:00 Cholecalciferol (Vitamin D) 1,000 unit DAILY PO Last administered on 07/03/17 13:32; Admin Dose 1,000 UNIT; Start 07/03/17 at 11:30 Diagnostic Test (Pha) (Accu-Chek) 1 ea 02 XX ; Start 07/04/17 at 02:00 Diagnostic Test (Pha) (Accu-Chek) 1 ea 02 XX ; Start 07/04/17 at 02:00 Miscellaneous Information 1 ea NOTE XX ; Start 07/03/17 at 11:30 Glucose (Glutose) 15 gm Q15M PRN PO DECREASED GLUCOSE; Start 07/03/17 at 11:30 Glucose (Glutose) 22.5 gm Q15M PRN PO DECREASED GLUCOSE; Start 07/03/17 at 11: 30 Dextrose (D50w Syringe) 25 ml Q15M PRN IV DECREASED GLUCOSE; Start 07/03/17 at 11:30 Dextrose (D50w Syringe) 50 ml Q15M PRN IV DECREASED GLUCOSE; Start 07/03/17 at 11:30 Glucagon (Glucagen) 1 mg Q15M PRN IM DECREASED GLUCOSE; Start 07/03/17 at 11:30 Glucose (Glutose) 15 gm Q15M PRN BUCCAL DECREASED GLUCOSE; Start 07/03/17 at 11 :30 Aspirin (Aspirin) 81 mg DAILY PO Last administered on 07/03/17 17:20; Admin Dose 81 MG; Start 07/03/17 at 14:30 Atorvastatin Calcium 40 mg 40 mg HS PO ; Start 07/03/17 at 21:00 Ceftriaxone Sodium (Rocephin) 50 ml @ 100 mls/hr Q24H IVPB Last administered on 07/03/17 17:20; Admin Dose 100 MLS/HR; Start 07/03/17 at 16:00 Assessment/Plan Chief Complaint/Hosp Course 67 yo female with hx of Type II DM p/w multiple diffuse complaints dyspnea on exertion, cough, dizziness. Non focal neurologic exam. May obtain MRI Brain w/o contrast to r/o possible central causes of her sx- still pending duplex is negative Check Orthostatic vitals may check FLP and HBA1c to optimize secondary risk factors for stroke continue medical work up as planned will follow Problems: KAJAL FLETCHER MD Jul 03, 2017 18:09
[2017-07-03] MEDS ORDERED: ATORVASTATIN 40 MG TAB PO SCH (21:00)
[2017-07-04] VITALS (13 sets, daily range): BP systolic 107–126; BP diastolic 53–70; PULSE 56–68; RESP 18–19
[2017-07-04] MEDS ORDERED: ACCU-CHEK XX SCH ×2 (02:00)
[2017-07-04] MEDS: INSULIN ASPART [NOVOLOG] 3 ML PEN SC SCH ×4 (07:38→13:00)
[2017-07-04 09:15] LABS: BASOPHILS % 0.3 % (0.0-2.0); EOSINOPHILS # 0.3 10^3/ul (0.0-0.5); EOSINOPHILS % 4.5 % (0.0-7.0); HEMATOCRIT 42.6 % (37.0-47.0); HEMOGLOBIN 14.2 g/dl (12.0-16.0); LYMPHOCYTES # 2.7 10^3/ul (0.8-2.9); LYMPHOCYTES % 37.2 % (15.0-51.0); MEAN CORPUSCULAR HEMOGLOBIN 30.4 pg (29.0-33.0); MEAN CORPUSCULAR HGB CONC 33.3 g/dl (32.0-37.0); MEAN CORPUSCULAR VOLUME 91.2 fl (82.0-101.0); MEAN PLATELET VOLUME 9.2 fl (7.4-10.4); MONOCYTE # 0.3 10^3/ul (0.3-0.9); MONOCYTES % 4.8 % (0.0-11.0); NEUTROPHIL # 3.8 10^3/ul (1.6-7.5); NEUTROPHILS % 52.9 % (39.0-77.0); PLATELET COUNT 168 10^3/UL (140-415); RED BLOOD COUNT 4.67 10^6/ul (4.20-5.40); RED CELL DISTRIBUTION WIDTH 12.5 % (11.5-14.5); WHITE BLOOD COUNT 7.2 10^3/ul (4.8-10.8)
[2017-07-04 09:31] LABS: PHOSPHORUS 3.7 mg/dl (2.5-4.9)
[2017-07-04] MEDS ORDERED: REGADENOSON 0.4 MG/5 ML SYG ONE (09:31)
[2017-07-04 09:39] LABS: CALCIUM 8.7 mg/dl (8.4-10.2); CREATININE 0.74 mg/dl (0.44-1.00); POTASSIUM 4.2 mmol/L (3.5-5.1)
--- NOTE | 2017-07-04 09:58 | RADRPT ---
Echocardiogram Report Patient Name: ACACIA BOWMAN Gender: Female Date: 1950 Study Date: 03-Jul-2017 Color Separation Photographer: Ayleen [facility] Location: I Ref. Physician: MIRIAM GARCIA Quality: Technically Difficult Study Procedures: Transthoracic echocardiogram with complete 2D, M-Mode, and doppler examination. Indications: Evaluate Left Ventricular function. 2D/M Mode Doppler Measurement Value Normal Ranges Measurement Value Normal Ranges LVIDd 2D 3.5 3.5 - 5.6 cm AV Peak Shai 1.4 m/sec LVIDs 2D 2.3 2.1 - 4.1 cm AV Peak PG 8.0 mmHg FS 2D 32.7 % LVOT Peak Shai 1.2 m/sec LVPWd 2D 1.3 0.6 - 1.1 cm LVOT Peak PG 6.0 mmHg IVSd 2D 1.3 0.6 - 1.1 cm MV E Peak Shai 0.6 m/sec IVS/LVPW 2D 1.0 MV A Peak Shai 0.8 m/sec AoR Diam 2D 2.8 2.0 - 3.7 cm MV E/A 0.7 LA/Ao 2D 1 0 - 1 MV Decel Time 190 msec EDV 2D 42.5 cm3 MV E/A 0.7 ESV 2D 13.0 cm3 TR Peak Shai 2.7 m/sec LA Dimen 2D 3.2 2.3 - 4.0 cm TR Peak PG 29.0 mmHg RVSP 31.0 mmHg Findings Left Ventricle: Normal left ventricular systolic function. Normal left ventricular cavity size. Mild concentric left ventricular hypertrophy. Ejection fraction is visually estimated at 65 %. Tissue Doppler/Mitral Doppler indices are within normal limits. Right Ventricle: Normal right ventricular systolic function. Moderate enlargement of right ventricle. Left Atrium: There is mild enlargement of left atrium. Right Atrium: There is moderate enlargement of right atrium. Mitral Valve: Mild mitral leaflet calcification. Mild mitral annular calcification. Trace mitral regurgitation. Aortic Valve: Aortic sclerosis without stenosis. Mild aortic valve regurgitation. Tricuspid Valve: Normal appearance of the tricuspid valve. Estimated peak PA systolic pressure 31 mmHg. There is mild tricuspid regurgitation. Pulmonic Valve: Pulmonic valve not well visualized. There is trace pulmonic regurgitation. Pericardium: Normal pericardium with no significant pericardial effusion. Aorta: Normal aortic root. IVC: Normal size and normal respiratory collapse consistent with normal right atrial pressure. Conclusions 1.Normal left ventricular systolic function. Normal left ventricular cavity size. Mild concentric left ventricular hypertrophy. Ejection fraction is visually estimated at 65 %. Tissue Doppler/Mitral Doppler indices are within normal limits. 2.Normal right ventricular systolic function. Moderate enlargement of right ventricle. No obvious PFO/ASD but could consider bubble study for evaluation. There is moderate enlargement of right atrium. 3.Mild aortic valve regurgitation. 4.Estimated peak PA systolic pressure 31 mmHg based on RA pressure of 3 mmHg. Electronically Signed By: Amando Ruiz 04-Jul-2017 09:58:06 -0700 Patient Name: ACACIA BOWMAN Study Date: 03-Jul-2017 [id number]
--- NOTE | 2017-07-04 10:23 | CONS ---
Date/Time of Note Date/Time of Note DATE: 07/04/17 TIME: 10:22 Assessment/Plan Assessment/Plan Chief Complaint/Hosp Course Exertional dyspnea: No e/o heart failure or valvular disease by exam or echo. Preserved EF Chest pain: Atypical and nonexertional but has CAD risk factors including DM Dizziness: chronic and thought to be vertigo DM -ASA/statin -if Lexiscan negative, ok for d/c from my perspective Problems: Consultation Date/Type/Reason Admit Date/Time Jul 02, 2017 at 11:42 Initial Consult Date 07/03/17 Type of Consultation: Cardiology Referring Provider: GINA SOMMER NP 24 HR Interval Summary Free Text/Dictation No o/n events.No chest pain or SOB Exam/Review of Systems Vital Signs Vitals Vital Signs Date Time Temp Pulse Resp B/P Pulse Ox O2 Delivery O2 Flow Rate FiO2 07/04/17 08:02 68 07/04/17 07:52 98.1 19 110/67 95 07/04/17 00:00 Room Air 07/02/17 10:29 2 Intake and Output 07/03/17 07/03/17 07/04/17 15:00 23:00 07:00 Intake Total 700 ml 500 ml Balance 700 ml 500 ml Exam Constitutional: alert, oriented Psych: nl mood/affect, no complaints Head: atraumatic, normocephalic Eyes: nl conjunctiva Neck: No jvd Respiratory: clear to auscultation, No crackles/rales Cardiovascular: regular rate and rhythm, No edema, No rub, No systolic murmur Gastrointestinal: non-tender, soft, No distended Neurological: nl mental status, nl speech Results Result Diagram: 07/04/17 0825 07/04/17 0825 Results 24 hrs Laboratory Tests Test 07/03/17 12:36 07/03/17 17:19 07/03/17 20:42 07/04/17 08:02 Bedside Glucose 167 94 121 146 Test 07/04/17 08:25 White Blood Count 7.2 Red Blood Count 4.67 Hemoglobin 14.2 Hematocrit 42.6 Mean Corpuscular Volume 91.2 Mean Corpuscular Hemoglobin 30.4 Mean Corpuscular Hemoglobin Concent 33.3 Red Cell Distribution Width 12.5 Platelet Count 168 Mean Platelet Volume 9.2 Neutrophils % 52.9 Lymphocytes % 37.2 Monocytes % 4.8 Eosinophils % 4.5 Basophils % 0.3 Nucleated Red Blood Cells % 0.0 Neutrophils # 3.8 Lymphocytes # 2.7 Monocytes # 0.3 Eosinophils # 0.3 Basophils # 0.0 Nucleated Red Blood Cells # 0.0 Sodium Level 142 Potassium Level 4.2 Chloride Level 107 Carbon Dioxide Level 25 Anion Gap 14 Blood Urea Nitrogen 21 H Creatinine 0.74 Glucose Level 154 Calcium Level 8.7 Phosphorus Level 3.7 Magnesium Level 2.0 Medications Medications Current Medications Ondansetron HCl (Zofran Inj) 4 mg Q6H PRN IV NAUSEA AND/OR VOMITING; Start 07/02/17 at 13:00 Acetaminophen (Tylenol Tab) 650 mg Q6H PRN PO PAIN LEVEL 1-3 OR FEVER; Start 07/02/17 at 13:00 Acetaminophen/ Hydrocodone Bitart ([place] (5/325)) 1 tab Q6H PRN PO PAIN LEVEL 4 -6; Start 07/02/17 at 13:00 Cholecalciferol (Vitamin D) 1,000 unit DAILY PO Last administered on 07/03/17t 13:32; Admin Dose 1,000 UNIT; Start 07/03/17 at 11:30 Diagnostic Test (Pha) (Accu-Chek) 1 ea 02 XX ; Start 07/04/17 at 02:00 Diagnostic Test (Pha) (Accu-Chek) 1 ea 02 XX ; Start 07/04/17 at 02:00 Miscellaneous Information 1 ea NOTE XX ; Start 07/03/17 at 11:30 Glucose (Glutose) 15 gm Q15M PRN PO DECREASED GLUCOSE; Start 07/03/17 at 11:30 Glucose (Glutose) 22.5 gm Q15M PRN PO DECREASED GLUCOSE; Start 07/03/17 at 11: 30 Dextrose (D50w Syringe) 25 ml Q15M PRN IV DECREASED GLUCOSE; Start 07/03/17 at 11:30 Dextrose (D50w Syringe) 50 ml Q15M PRN IV DECREASED GLUCOSE; Start 07/03/17 at 11:30 Glucagon (Glucagen) 1 mg Q15M PRN IM DECREASED GLUCOSE; Start 07/03/17 at 11:30 Glucose (Glutose) 15 gm Q15M PRN BUCCAL DECREASED GLUCOSE; Start 07/03/17 at 11 :30 Aspirin (Aspirin) 81 mg DAILY PO Last administered on 07/03/17 17:20; Admin Dose 81 MG; Start 07/03/17 at 14:30 Atorvastatin Calcium 40 mg 40 mg HS PO Last administered on 07/03/17 20:43; Admin Dose 40 MG; Start 07/03/17 at 21:00 Ceftriaxone Sodium (Rocephin) 50 ml @ 100 mls/hr Q24H IVPB Last administered on 07/03/17 17:20; Admin Dose 100 MLS/HR; Start 07/03/17 at 16:00 ZOILA PANIAGUA Jul 04, 2017 10:23
[2017-07-04] MEDS ORDERED: ASPI81TA3 PO (10:34)
[2017-07-04] MEDS ORDERED: CHOL100062 PO (10:34)
[2017-07-04] MEDS ORDERED: METF500T4 PO (10:34)
--- NOTE | 2017-07-04 10:56 | PDOCDIS ---
Discharge Instructions DIAGNOSIS Discharge Diagnosis 1. Chronic progressive dyspnea with an exertional component 2. Vertigo. 3. Type 2 diabetes mellitus. 4. Vitamin D deficiency. CONDITION Patient Condition: Stable HOME CARE INSTRUCTIONS: Special Diet: carb controlled diet FOLLOW UP/APPOINTMENTS Follow-up Plan Follow-up with Your primary care provider within a week LOKI HOUGH Jul 04, 2017 10:56
[2017-07-04] MEDS ORDERED: MECL-77 PO (10:58)
--- NOTE | 2017-07-04 11:12 | RADRPT ---
PROCEDURE: Nuclear medicine myocardial stress and rest scan. CLINICAL INDICATION: Chest pain. TECHNIQUE: The patient was stressed with 0.4 mg IV Lexiscan. 10.6 mCi technetium 99m Tetrofosmin (Myoview) was administered rest. 32.4 mCi technetium 99m Tetrofosmin (Myoview) was administered du ring stress. Images were obtained and reconstructed in the short axis, horizontal long axis, and ve rtical long axis. Gated images were obtained and ejection fraction was calculated. COMPARISON: No prior study is available for comparison. FINDINGS: The stress and rest images demonstrate normal uptake throughout. There is no fixed abnormality or r eversible abnormality. There is no evidence of transient ischemic dilatation. Wall motion is normal. There is normal wall thickening during systole. Ejection fraction at stress is 69%. IMPRESSION: 1. No evidence of stress induced myocardial ischemia. 2. Ejection fraction at stress is 69%. RPTAT: QQ .Thuan Acosta MD, MD Date Time Electronically viewed and signed by .Thuan Acosta MD, on 07/04/2017 11:11 .R/
[2017-07-04] MEDS: ASPIRIN 81 MG TAB PO SCH (13:03)
[2017-07-04] MEDS: CHOLECALCIFEROL 1,000 UNIT TAB PO SCH (13:03)
[2017-07-04] MEDS ORDERED: ATOR20TA38 PO (16:33)
--- NOTE | 2017-07-12 17:39 | DS ---
Date/Time of Note Date/Time of Note DATE: 07/12/17 TIME: 17:37 Discharge Summary Admission/Discharge Info Admit Date/Time Jul 02, 2017 at 11:42 Discharge Date/Time Jul 04, 2017 at 17:40 Discharge Diagnosis 1. Chronic progressive dyspnea with an exertional component 2. Vertigo. 3. Type 2 diabetes mellitus. 4. Vitamin D deficiency. Patient Condition: Stable Consults 1. Dr. Amanda Recinos 2. Dr. Amando Ruiz Hospital Course This is a 67-year-old female with history of type 2 diabetes who came to [facility] due to reports of shortness of breath for 6 weeks duration. Patient also had nonspecific complaints of headache as well. He subsequently went to [facility] for further evaluation. Patient did have multiple consultants including neurologist and machine leather trimmer. For her dyspnea she did have an x-ray that was unimpressive. She did have low risk for thrombotic embolic process. Serial troponins were negative. Echocardiogram did show her to have an EF of 65%. Chest pain was atypical and of note she had a stress test that was negative for her reported headache she did have an CT scan of her brain done that was negative for any acute findings. She was continued analgesics for this. During the course of stay he did improve. She was otherwise optimized medically. She is continued on insulin for diabetes and started on vitamin D supplement for her low level of vitamin D. The plan of care was discussed with patient and patient did verbalize understanding. On the day of discharge patient was in stable condition Discussed plan of care with Dr. [facility] Active Scripts Atorvastatin Calcium* (Atorvastatin Calcium*) 20 Mg Tablet, 20 MG PO QHS, #30 TAB Prov:LOKI HOUGH 07/04/17 Meclizine Hcl* (Meclizine Hcl*) 25 Mg Tablet, 25 MG PO Q8H Y for DIZZINESS, #30 TAB Prov:LOKI HOUGH 07/04/17 Metformin Hcl* (Metformin Hcl*) 500 Mg Tablet, 500 MG PO WITH BREAKFAST DINNE, # 60 TAB Prov:LOKI HOUGH 07/04/17 Cholecalciferol* (Vitamin D3*) 1,000 Unit Tablet, 1000 UNIT PO DAILY, #30 TAB Prov:LOKI HOUGH 07/04/17 Aspirin (Aspirin) 81 Mg Chew, 81 MG PO DAILY, #30 TAB Prov:LOKI HOUGH 07/04/17 Follow-up Plan Follow-up with Your primary care provider within a week Primary Care Provider Not On Staff Doctor Time spent on discharge: > 30 minutes LOKI HOUGH Jul 12, 2017 17:39
== END 2017-07-04 17:40 | disposition home or self-care (01) ==
LOC: E/R 09:36 → MS4 11:42 → INTOOBSV 11:42 → UNDOADMIN 14:21 → MS4 14:21
PROVIDERS: ADMIT Internal Medicine; ATTEND Internal Medicine
DX: R06.09 Other forms of dyspnea (principal); R07.89 Other chest pain; R42 Dizziness and giddiness; E11.9 Type 2 diabetes mellitus without complications; I70.0 Atherosclerosis of aorta; M47.894 Other spondylosis, thoracic region; E55.9 Vitamin D deficiency, unspecified; R55 Syncope and collapse; Z23 Encounter for immunization
CPT/HCPCS: 36415; 70450; 71010; 78452; 80048; 80053; 80061; 80307; 81001; 82306; 82550; 82553; 82652; 82962; 83036; 83735; 83880; 84100; 84439; 84443; 84484; 85025; 85378; 85610; 85651; 85730; 86140; 87086; 90686; 93005; 93017; 93306; 93880; 97162; 99285; A9500; A9505; G0378; J0696; J1815; J2785; 99217